=== PATIENT | male | born 1980 | race Caucasian/White ===

== ENCOUNTER → 2018-01-06 | Outpatient (CLI) | payer SELFPAY | LOC: RAD 16:20 | DX: M19.011 Primary osteoarthritis, right shoulder (principal) ==

== ENCOUNTER 2018-11-27 09:00 | Outpatient (RCR) | payer OTHER | END 2019-02-01 | disposition still patient (30) | LOC: PT | DX: M19.011 Primary osteoarthritis, right shoulder (principal) ==

== ENCOUNTER → 2019-01-12 | Outpatient (CLI) | payer OTHER, BC | LOC: RAD 11:14 | DX: M25.511 Pain in right shoulder (principal); Z98.890 Other specified postprocedural states ==

== ENCOUNTER → 2019-02-18 | Outpatient (CLI) | payer OTHER, BC | LOC: RAD 15:35 | DX: M25.511 Pain in right shoulder (principal) ==

== ENCOUNTER → 2019-04-04 | Outpatient (CLI) | payer OTHER, BC | LOC: RAD 15:54 | DX: M75.81 Other shoulder lesions, right shoulder (principal) ==

== ENCOUNTER 2020-02-27 22:16 | Emergency (ER) | payer OTHER ==
[~2020-02-27] VITALS: Ht 180.3 cm; Wt 100.0 kg
[~2020-02-27 22:16] MED LIST: PRILOSEC 20MG20 MG PO
[2020-02-27 22:24] VITALS: BP 160/79
== END 2020-02-27 23:50 | disposition home or self-care (01) ==
LOC: ED 22:16
DX: S93.411A Sprain of calcaneofibular ligament of right ankle, initial encounter (principal); F17.210 Nicotine dependence, cigarettes, uncomplicated; X50.1XXA Overexertion from prolonged static or awkward postures, initial encounter; Y92.009 Unspecified place in unspecified non-institutional (private) residence as the place of occurrence of the external cause
CPT/HCPCS: L4386

== ENCOUNTER 2020-06-07 11:31 | Emergency (ER) | payer OTHER ==
[~2020-06-07] VITALS: Ht 180.3 cm; Wt 102.3 kg
[2020-06-07 13:12] VITALS: BP 139/93
== END 2020-06-07 13:10 | disposition home or self-care (01) ==
LOC: ED 11:31
DX: S76.012A Strain of muscle, fascia and tendon of left hip, initial encounter (principal); K21.9 Gastro-esophageal reflux disease without esophagitis; Z87.891 Personal history of nicotine dependence; Z79.899 Other long term (current) drug therapy; Z79.1 Long term (current) use of non-steroidal anti-inflammatories (NSAID); W54.8XXA Other contact with dog, initial encounter; Y92.009 Unspecified place in unspecified non-institutional (private) residence as the place of occurrence of the external cause

== ENCOUNTER 2020-07-07 13:11 | Emergency (ER) | payer OTHER ==
[~2020-07-07] VITALS: Ht 180.3 cm; Wt 109.1 kg
[2020-07-07 13:46] LABS: HEMATOCRIT 46.3 % (42.0-52.0); HEMOGLOBIN 15.2 g/dL (13.5-18.0); MEAN CELL VOLUME 92 fl (78-100); MEAN CORPUSCULAR HEMOGLOBIN 30 pg (27-31); MEAN CORPUSCULAR HGB CONC 33 g/dL (33-37); MEAN PLATELET VOLUME 9.1 fl (7.4-10.4); PLATELET COUNT 425 K/mm3 (130-400); RED BLOOD COUNT 5.02 M/mm3 (4.20-5.60); RED CELL DISTRIBUTION WIDTH 12.9 % (11.5-14.5); WHITE BLOOD COUNT 9.7 K/mm3 (4.8-10.8)
[2020-07-07 13:53] LABS: ALBUMIN 4.5 g/dL (3.5-5.0); POTASSIUM 3.9 mmol/L (3.5-5.1)
[2020-07-07 13:54] LABS: CALCIUM 9.3 mg/dL (8.3-10.5); LYMPHOCYTE 29 % (20-51); NEUTROPHILS 60 % (42-75)
[2020-07-07 13:55] LABS: MONOCYTE 11 % (3-10)
[2020-07-07 13:56] LABS: TOTAL PROTEIN 7.8 g/dL (6.4-8.3)
[2020-07-07 13:57] LABS: TOTAL BILIRUBIN 0.3 mg/dL (0.2-1.2)
[2020-07-07 14:01] LABS: URINE APPEARANCE CLEAR; URINE BILIRUBIN NEGATIVE (NEGATIVE); URINE BLOOD NEGATIVE (NEGATIVE); URINE COLOR YELLOW; URINE GLUCOSE NEGATIVE (NEGATIVE); URINE KETONE NEGATIVE (NEGATIVE); URINE LEUKOCYTE ESTERASE NEGATIVE (NEGATIVE); URINE MUCUS PRESENT (NOT PRESENT); URINE NITRATE NEGATIVE (NEGATIVE); URINE PROTEIN(semi-quant) TRACE mg/dL (NEGATIVE); URINE UROBILINOGEN NORMAL (NORMAL); URINE WBC 0-1 /hpf (0-3)
[2020-07-07 14:18] LABS: LIPASE 19 U/L (8-78)
[2020-07-07] MEDS ORDERED: ONDANSETRON ODT8 MG PO (15:33)
[2020-07-07 15:51] VITALS: BP 126/92
== END 2020-07-07 15:50 | disposition home or self-care (01) ==
LOC: ED 13:11
PROVIDERS: Nurse Practitioner Family
DX: R10.84 Generalized abdominal pain (principal); K76.0 Fatty (change of) liver, not elsewhere classified; E86.0 Dehydration; R11.0 Nausea; R19.7 Diarrhea, unspecified; Z20.828 Contact with and (suspected) exposure to other viral communicable diseases; Z87.891 Personal history of nicotine dependence
CPT/HCPCS: J1885; J2270; J2405; J7030; Q9967

== ENCOUNTER 2020-10-23 10:29 | Emergency (ER) | payer OTHER ==
[~2020-10-23] VITALS: Ht 180.3 cm; Wt 109.1 kg
[~2020-10-23 10:29] MED LIST changes: +ONDANSETRON ODT8 MG PO
[2020-10-23 11:26] LABS: STREP SCREEN POSITIVE (NEGATIVE)
[2020-10-23 11:30] VITALS: BP 148/95
== END 2020-10-23 12:04 | disposition home or self-care (01) ==
LOC: ED 10:29
PROVIDERS: Family Medicine
DX: J02.0 Streptococcal pharyngitis (principal); Z20.822 Contact with and (suspected) exposure to COVID-19
CPT/HCPCS: J0561

== ENCOUNTER → 2020-12-15 | Outpatient (CLI) | payer OTHER ==
[~2020-12-15] MED LIST changes: +ADVIL 200MG TA200 MG PO; +ATORVASTATIN CA40 MG PO; +LISINOPRIL40 MG PO; +NORCO 325 MG-51 TA1 PO
[2020-12-15 08:46] VITALS: BP 137/74
[2020-12-15 09:42] VITALS: BP 124/88
== END ==
LOC: AMSURD 08:16
DX: K52.9 Noninfective gastroenteritis and colitis, unspecified (principal)
CPT/HCPCS: J2405; J7030

== ENCOUNTER 2021-04-05 19:26 | Emergency (ER) | payer OTHER ==
[~2021-04-05 19:26] MED LIST changes: -ADVIL 200MG TA200 MG PO; -ATORVASTATIN CA40 MG PO; -LISINOPRIL40 MG PO; -NORCO 325 MG-51 TA1 PO
[2021-04-05 19:56] VITALS: BP 158/91
[2021-04-05] MEDS ORDERED: ADVIL 200MG TA200 MG PO (20:41)
[2021-04-05] MEDS ORDERED: NORCO 325 MG-51 TA1 PO (20:54)
== END 2021-04-05 21:18 | disposition home or self-care (01) ==
LOC: ED 19:26
DX: M25.512 Pain in left shoulder (principal); F17.210 Nicotine dependence, cigarettes, uncomplicated

== ENCOUNTER 2021-05-09 17:41 | Emergency (ER) | payer OTHER ==
[~2021-05-09] VITALS: Ht 180.3 cm; Wt 104.5 kg
[~2021-05-09 17:41] MED LIST changes: +ADVIL 200MG TA200 MG PO; +NORCO 325 MG-51 TA1 PO
[2021-05-09] MEDS ORDERED: LISINOPRIL40 MG PO (18:03)
[2021-05-09] MEDS ORDERED: PRILOSEC 20MG20 MG PO (18:03)
[2021-05-09] MEDS ORDERED: ATORVASTATIN CA40 MG PO (18:03)
[2021-05-09 19:38] VITALS: BP 141/79
== END 2021-05-09 19:38 | disposition home or self-care (01) ==
LOC: ED 17:41
DX: S39.012A Strain of muscle, fascia and tendon of lower back, initial encounter (principal); S29.019A Strain of muscle and tendon of unspecified wall of thorax, initial encounter; X50.1XXA Overexertion from prolonged static or awkward postures, initial encounter

== ENCOUNTER 2021-09-25 14:04 | Outpatient (RCR) | payer OTHER ==
[~2021-09-25 14:04] MED LIST changes: +ATORVASTATIN CA40 MG PO; +LISINOPRIL40 MG PO
== END 2021-10-09 | disposition home or self-care (01) ==
LOC: PT
DX: M25.512 Pain in left shoulder (principal)

== ENCOUNTER → 2022-01-30 | Outpatient (CLI) | payer OTHER | LOC: RAD 14:57 | DX: M79.672 Pain in left foot (principal); W18.42XA Slipping, tripping and stumbling without falling due to stepping into hole or opening, initial encounter ==

== ENCOUNTER 2022-04-29 22:49 | Emergency (ER) | payer OTHER ==
[~2022-04-29] VITALS: Ht 180.3 cm; Wt 113.6 kg
[2022-04-29 22:55] VITALS: BP 157/96
[2022-04-29] MEDS ORDERED: CEPHALEXIN500 M1 PO (23:21)
== END 2022-04-29 23:34 | disposition home or self-care (01) ==
LOC: ED 22:49
DX: R05.9 Cough, unspecified (principal)

== ENCOUNTER → 2023-09-24 | Outpatient (CLI) | payer OTHER ==
[~2023-09-24] MED LIST changes: +CEPHALEXIN500 M1 PO
== END ==
LOC: LAB 10:16
DX: R89.1 Abnormal level of hormones in specimens from other organs, systems and tissues (principal); E78.5 Hyperlipidemia, unspecified; R73.9 Hyperglycemia, unspecified; E55.9 Vitamin D deficiency, unspecified

== ENCOUNTER → 2024-02-28 | Outpatient (CLI) | payer OTHER ==
[2024-02-28 08:21] LABS: ALBUMIN 4.4 g/dL (3.5-5.0)
[2024-02-28 08:24] LABS: TOTAL PROTEIN 6.9 g/dL (6.4-8.3)
[2024-02-28 08:26] LABS: TOTAL BILIRUBIN 0.3 mg/dL (0.2-1.2)
== END ==
LOC: LAB 07:59
PROVIDERS: Physician Assistant
DX: R73.9 Hyperglycemia, unspecified (principal)

== ENCOUNTER 2024-08-05 20:59 | Emergency (ER) | payer OTHER ==
[~2024-08-05] VITALS: Ht 180.3 cm; Wt 109.1 kg
[2024-08-05 21:25] VITALS: BP 170/99
[2024-08-05] MEDS ORDERED: HYDROcodone/Acetaminophen 7.5-325 MG TAB PO ONE (21:45)
[2024-08-05] MEDS ORDERED: Home HYDROcodone/Acetaminophen 5/325 MG #4 TABS/PACK PO ONE (22:45)
== END 2024-08-05 22:52 | disposition home or self-care (01) ==
LOC: ED 20:59
DX: S49.92XA Unspecified injury of left shoulder and upper arm, initial encounter (principal); W10.8XXA Fall (on) (from) other stairs and steps, initial encounter; Y93.89 Activity, other specified

== ENCOUNTER 2024-10-09 17:11 | Emergency (ER) | payer OTHER ==
[~2024-10-09] VITALS: Ht 180.3 cm; Wt 110.9 kg
[2024-10-09] MEDS ORDERED: LIPITOR20 M2 PO (17:18)
[2024-10-09] MEDS ORDERED: ZESTRIL10 M1 PO (17:18)
[2024-10-09] MEDS ORDERED: TAMIFLU 75MG75 MG PO (17:59)
[2024-10-09] MEDS ORDERED: FLUTICASONE P15.8 ML NS (17:59)
[2024-10-09] MEDS ORDERED: ALLER-TEC10 MG PO (17:59)
[2024-10-09 18:09] VITALS: BP 107/76
== END 2024-10-09 18:05 | disposition home or self-care (01) ==
LOC: ED 17:11
DX: J10.1 Influenza due to other identified influenza virus with other respiratory manifestations (principal); E66.9 Obesity, unspecified; Z20.828 Contact with and (suspected) exposure to other viral communicable diseases